=== PATIENT | male | born 1990 | race Caucasian/White ===

== ENCOUNTER 2017-10-15 00:06 | Emergency (ER) | payer OTHER ==
[~2017-10-15] VITALS: Ht 167.6 cm; Wt 55.0 kg
[~2017-10-15 00:06] MED LIST: NAPR500 PO; TRIA.1%T TOP; Z.0.NO CURRENT MEDS
[2017-10-15 00:27] VITALS: BP 119/69; PULSE 97; RESP 20; TEMP 98.2; O2SAT 100
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
[2017-10-15] MEDS ORDERED: IBUPROFEN 600 MG TAB PO ONE (04:30)
[2017-10-15] MEDS ORDERED: CYCLOBENZAPRINE HCL 10 MG TAB PO ONE (04:30)
[2017-10-15 04:33] VITALS: BP 110/71; PULSE 98; RESP 16; TEMP 98.4; O2SAT 100
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
[2017-10-15] MEDS ORDERED: IBUP-232 PO (05:10)
[2017-10-15] MEDS ORDERED: ROBA500T PO (05:10)
== END 2017-10-15 05:50 | disposition home or self-care (01) ==
LOC: NEPD 00:06
DX: S80.02XA Contusion of left knee, initial encounter (principal); V43.52XA Car driver injured in collision with other type car in traffic accident, initial encounter
CPT/HCPCS: 73564; 73590; 99283; E0113